=== PATIENT | male | born 2000 | race Caucasian/White ===

== ENCOUNTER 2023-10-17 19:12 | Emergency (ER) | payer OTHER, SELFPAY ==
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
[2023-10-17 19:29] VITALS: BP 138/70; PULSE 71; RESP 18; TEMP 36.9; O2SAT 98; BMI 23.8
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
[2023-10-17 22:30] VITALS: BP 137/60; PULSE 62; RESP 16; TEMP 37; O2SAT 100
[2023-10-17 23:34] VITALS: BP 114/97; PULSE 62; RESP 20; TEMP 36.9; O2SAT 97
== END 2023-10-17 23:34 | disposition home or self-care (01) ==
PROVIDERS: Emergency Provider Internal Medicine; PCP Internal Medicine
DX: M54.6 Pain in thoracic spine (principal); S29.9XXA Unspecified injury of thorax, initial encounter; V47.5XXA Car driver injured in collision with fixed or stationary object in traffic accident, initial encounter; Y93.9 Activity, unspecified; Y92.9 Unspecified place or not applicable; Y99.9 Unspecified external cause status
CPT/HCPCS: 72072; 99283